=== PATIENT | male | born 1990 | race Caucasian/White ===

== ENCOUNTER 2018-09-30 11:51 | Emergency (ER) | payer BC ==
[~2018-09-30] VITALS: Ht 188 cm; Wt 114.8 kg
[2018-09-30 11:55] VITALS: BP_SYST 148
--- NOTE | 2018-09-30 12:01 | NUR ---
Patient to ER bed 5 to gown for evaluation. Side rails up. Report given to [facility].
--- NOTE | 2018-09-30 12:02 | NUR ---
Pt AAOx4 ambulated into ED c/o nausea, generalized cramping, and weakness last night. Pt reports he had a large splinter in his R shoulder x 1 week ago which he removed himself. Pt states he still feels something left under his skin. No bleeding/discharge present. No other injuries/complaints per pt/noted. Will continue to monitor.
--- NOTE | 2018-09-30 12:05 | NUR ---
ER Dr. Bear at bedside examining patient.
[2018-09-30] MEDS ORDERED: LIDOCAINE 1% 10 MG/ML, 20 ML MDV INJ ONE (12:15)
[2018-09-30] MEDS ORDERED: BACITRACIN 1 GM OINT TP ONE (12:15)
[2018-09-30] MEDS ORDERED: DIPH-TET-PERTUS Vaccine 0.5 ML VIAL (ADACEL) IM ONE (12:15)
--- NOTE | 2018-09-30 12:15 | NUR ---
ER Dr. Bear at bedside examining patient.
--- NOTE | 2018-09-30 12:29 | NUR ---
I&D Procedure done by Dr rosario using sterile technique. Lidocaine 1% used. Scant amt of bleeding noted. Wound care discussed w/ patient. Pt tolerated procedure well. [address]
--- NOTE | 2018-09-30 12:30 | NUR ---
Site measures approximately 2.5 in. Non-adherent dressing applied. Tetanus vaccination given.
--- NOTE | 2018-09-30 12:47 | NUR ---
X-ray at bedside for portable x-ray
--- NOTE | 2018-09-30 13:00 | NUR ---
Venipuncture at bedside for lab orders
[2018-09-30 13:08] LABS: BASOPHILS % (AUTO) 0.4 % (0.0-2.0); EOSINOPHILS # (AUTO) 0.1 K/uL (0.0-0.4); EOSINOPHILS % (AUTO) 1.7 % (0.0-4.0); HEMATOCRIT 41.6 % (36-54); LYMPHOCYTES # (AUTO) 1.4 K/uL (1.0-5.5); LYMPHOCYTES % (AUTO) 19.4 % (20.5-51.5); MEAN CORPUSCULAR HEMOGLOBIN 20 pg (27-31); MEAN CORPUSCULAR HGB CONC 31 % (32-36); MEAN CORPUSCULAR VOLUME 63 fL (79.0-98.0); MONOCYTES # (AUTO) 0.5 K/uL (0.0-1.0); MONOCYTES % (AUTO) 6.7 % (1.7-9.3); NEUTROPHILS # (AUTO) 5.2 K/uL (1.8-7.7); NEUTROPHILS % (AUTO) 71.8 % (40.0-70.0); PLATELET COUNT (AUTO) 202 K/uL (130-430); RED BLOOD CELL COUNT(AUTO) 6.61 MIL/uL (4.2-6.2); RED CELL DISTRIBUTION WIDTH 15.7 % (9.0-15.0); WHITE BLOOD COUNT (AUTO) 7.3 K/uL (4.8-10.8)
[2018-09-30 13:26] LABS: ANION GAP 4 (5-15); CALCIUM 9.2 mg/dL (8.4-11.0); CHLORIDE 103 mmol/L (98-107); CREATININE 0.96 mg/dL (0.55-1.30); GFR AFRICAN AMERICAN 118 mL/min (>90); GLUCOSE 114 mg/dL (70-99); POTASSIUM 4.3 mmol/L (3.5-5.1); SODIUM SERUM 136 mmol/L (136-145); UREA NITROGEN, BLOOD 18 mg/dL (8-21)
[2018-09-30 13:28] LABS: PROTHROMBIN TIME 9.9 SECS (9.5-12.5)
[2018-09-30 13:30] LABS: ALANINE AMINOTRANSFERASE 41 U/L (12-78); ALBUMIN 3.9 g/dL (3.4-4.8); ASPARTATE AMINOTRANSFERASE 17 U/L (10-37); TOTAL BILIRUBIN 1.6 mg/dL (0.0-1.0); URIC ACID 5.6 mg/dL (2.4-7.0)
[2018-09-30 13:35] LABS: C-REACTIVE PROTEIN QUANT < 0.2 mg/dL (0-0.5)
--- NOTE | 2018-09-30 14:15 | NUR ---
ER Dr. Bear at bedside discussng results with patient.
[2018-09-30 14:40] VITALS: BP_SYST 148
--- NOTE | 2018-09-30 14:40 | NUR ---
Patient given written and verbal discharge instructions and verbalizes understanding. ER MD discussed with patient the results and treatment provided. Patient in stable condition. ID arm band removed. Rx of given. Patient educated on pain management and to follow up with PMD. Pain Scale 2/10 tolerable for patient. Opportunity for questions provided and answered. Medication side effect fact sheet provided.
== END 2018-09-30 14:40 | disposition home or self-care (01) ==
LOC: SED 11:51
DX: S41.011A Laceration without foreign body of right shoulder, initial encounter (principal); Z88.0 Allergy status to penicillin; X58.XXXA Exposure to other specified factors, initial encounter; Y93.89 Activity, other specified; Y92.89 Other specified places as the place of occurrence of the external cause; Y99.8 Other external cause status
CPT/HCPCS: 12001; 36415; 73030; 80053; 84550; 85025; 85610; 85730; 86140; 90471; 90715; 99284; J2001